=== PATIENT | female | born 1955 | race Caucasian/White ===

== ENCOUNTER 2019-08-30 08:32 | Emergency (ER) | payer MEDICARE, OTHER ==
[~2019-08-30] VITALS: Ht 165.1 cm; Wt 131.0 kg
[2019-08-30] MEDS ORDERED: LASIX 40 MG TAB40 MG PO (10:27)
[2019-08-30] MEDS ORDERED: POTASSIUM CHLO10 ME1 PO (10:28)
[2019-08-30] MEDS ORDERED: LORTAB 1010 MG PO (10:29)
[2019-08-30] MEDS ORDERED: VENTOLIN HFA IN (12:13)
[2019-08-30] MEDS ORDERED: ZITHROMAX500 MG PO (12:13)
[2019-08-30 12:18] VITALS: BP 154/73
== END 2019-08-30 12:40 | disposition home or self-care (01) ==
LOC: ED 08:32
DX: J18.9 Pneumonia, unspecified organism (principal)